=== PATIENT | female | born 1990 | race Caucasian/White ===

== ENCOUNTER 2016-04-27 17:20 | Inpatient (IN) | payer MEDICAID ==
[~2016-04-27] VITALS: Ht 152.4 cm; Wt 75.7 kg
[2016-04-27] MEDS ORDERED: PRENAT PO (17:36)
[2016-04-27 17:37] VITALS: Ht 152.4 cm; Wt 75.7 kg
[2016-04-27 17:38] VITALS: BP 123/76; PULSE 81; RESP 18
--- NOTE | 2016-04-27 17:57 | TRIAGE ---
OB Triage Datetime Report Generated by CPN: 04/27/2016 17:57 Datetime: 04/27/2016 17:41 Vaginal Exam Dilatation (cms): 4.0 Effacement (%): 80 Station: -2 Exam By: [email or web address] Datetime: 04/27/2016 17:34 Assessment Type: Triage Maternal Assessment Level of Consciousness: Fully Conscious DTR's/Clonus: DTRs 2+; No Clonus Headache: Denies Blurred Vision: No Respiratory Effort: Unlabored; Regular Rhythm; Equal Expansion Breath Sounds, Left: Clear and Equal Breath Sounds, Right: Clear and Equal Nausea/Vomiting: Denies RUQ Epigastric Pain: Denies Lower Extremities Edema: None Degree: None Upper Extremities Edema: None Degree: None Facial Edema: None Fall Risk Assessment History of Falling: (0) No Secondary Diagnosis: (0) No Ambulatory Aid: (0) Bedrest/Nurse Assist IV Therapy: (0) No Gait: (0) Normal/Bedrest/Immobile Mental Status: (0) Oriented to Own Ability Fall Score: 0 Fall Risk Score Definition: No Risk: No action required Datetime: 04/27/2016 17:32 Time of Arrival: 04/27/2016 17:16 EGA: 39.4 Arrived By: Wheelchair Arrived From: Home Chief Complaint: C/O UC'S Movement: Present Contractions: Regular Time Contractions Began: 04/26/2016 22:00 Rupture of Membranes: Denies Vaginal Bleeding: None Vaginal Discharge: Denies Recent Sexual Intercouse: Denies Abdominal Trauma: Not Applicable Patient Complaints: Contractions; Cramping; Back Pain Time Provider Notified: 04/27/2016 17:33 Provider Notified: LILLIAN Initial Plan: MARCK CASTILLO
[2016-04-27 18:49] LABS: BASOPHILS % 0.3 % (0.0-2.0); EOSINOPHILS # 0.1 10^3/ul (0.0-0.5); HEMATOCRIT 32.1 % (37.0-47.0); HEMOGLOBIN 10.7 g/dl (12.0-16.0); LYMPHOCYTES # 1.9 10^3/ul (0.8-2.9); LYMPHOCYTES % 21.7 % (15.0-51.0); MEAN CORPUSCULAR HEMOGLOBIN 28.3 pg (29.0-33.0); MEAN CORPUSCULAR HGB CONC 33.3 g/dl (32.0-37.0); MEAN CORPUSCULAR VOLUME 84.9 fl (82.0-101.0); MEAN PLATELET VOLUME 12.4 fl (7.4-10.4); MONOCYTE # 0.5 10^3/ul (0.3-0.9); MONOCYTES % 5.2 % (0.0-11.0); NEUTROPHIL # 6.2 10^3/ul (1.6-7.5); NEUTROPHILS % 71.8 % (39.0-77.0); PLATELET COUNT 187 10^3/UL (140-440); RED BLOOD COUNT 3.78 10^6/ul (4.20-5.40); RED CELL DISTRIBUTION WIDTH 14.4 % (11.5-14.5); UNCORRECTED WBC 8.7 10^3/ul (4.8-10.8); WHITE BLOOD COUNT 8.7 10^3/ul (4.8-10.8)
[2016-04-27] MEDS ORDERED: LIDOCAINE 1% (MPF) 30 ML INJ INJ PRN (19:00)
[2016-04-27] MEDS ORDERED: BUTORPHANOL 2 MG INJ IV PRN (19:00)
[2016-04-27] MEDS ORDERED: MISOPROSTOL 200 MCG TAB PR PRN (19:00)
[2016-04-27] MEDS ORDERED: OXYTOCIN 30 UNITS/LR 500 ML IV PRN ×2 (19:00)
[2016-04-27] MEDS ORDERED: CARBOPROST 250 MCG INJ IM PRN (19:00)
[2016-04-27] MEDS ORDERED: OXYTOCIN 30 UNITS/LR 500 ML IV SCH ×2 (19:00)
[2016-04-27] MEDS ORDERED: METHYLERGONOVINE 0.2 MG INJ IM PRN (19:00)
[2016-04-27] MEDS ORDERED: IBUPROFEN 600 MG TAB PO PRN (19:00)
[2016-04-27 19:09] LABS: CONDITION 1
[2016-04-27 19:10] LABS: INR 0.89; PT RATIO 0.9
[2016-04-27 19:11] LABS: PARTIAL THROMBOPLASTIN TIME 27.6 Sec (25.0-35.0)
[2016-04-27] MEDS: LACTATED RINGER'S 1,000 ML IV SCH (19:18)
[2016-04-27] MEDS: BUTORPHANOL 2 MG INJ IV PRN (20:32)
[2016-04-27] MEDS ORDERED: LACTATED RINGER'S 1,000 ML IV PRN (23:55)
[2016-04-28] MEDS: LACTATED RINGER'S 1,000 ML IV SCH ×2 (00:37→12:22)
[2016-04-28] MEDS: BUTORPHANOL 2 MG INJ IV PRN (00:50)
[2016-04-28 09:30] VITALS: BP 106/58; PULSE 80; RESP 18
[2016-04-28] MEDS ORDERED: OXYTOCIN 30 UNITS/LR 500 ML IV SCH ×2 (09:31→12:30)
[2016-04-28 09:45] VITALS: BP 110/59; PULSE 98; RESP 18
--- NOTE | 2016-04-28 09:47 | LDN ---
Date/Time of Note Date/Time of Note DATE: 04/28/16 TIME: 09:43 Delivery Summary Normal spontaneous vaginal delivery of a baby boy from OA position shoulder delivered without any difficulty followed with the rest of the baby's body; placenta spontaneous expulsion inspected complete patient sustained small perineal abrasion which repaired singular 3 [place] chromic catgut estimated blood loss 200 Placenta Delivered: Spontaneously Meconium: none Perineum intact?: Yes Anesthesia type: Epidural Sponge & Needle done & correct: Yes All needle counts correct: Yes Any foreign bodies felt in the: No Problems: Infant Delivery Information Sex Sex: male Apgars 1 Minute: 9 5 Minute: 9 Suctioning Nose & mouth suctioned at triston: Yes Delee suction performed: No Umbilical Cord Umbilical cord with: 3 Vessels Cord presentations: nuchal cord Cord Blood was obtained: Yes YAMILA ROD MD Apr 28, 2016 09:46
--- NOTE | 2016-04-28 09:53 | HP ---
Date/Time of Note Date/Time of Note DATE: 04/28/16 TIME: 09:47 OB - History Hx of Present Free Text/Dictation 25 years old female 39 weeks and 5 days admitted to [facility] in labor [id number] contractions with acceleration of heart tracing with some category 2 heart rate cervical dilatation 3-4 cm 100% effacement vertex at -1 station patient is being observed for possible normal delivery Estimated Due Date: Apr 30, 2016 : 2 Para: 1 Care: Limited Care Ultrasounds: Normal mid trimester US Obstetrical Complications: None Medical Complications: None Past Family/Social History * Past Medical, Surgical, Family and Obstetric Histories reviewed from chart. Rubella: immune RPR/VDRL: Negative GBS Status: Negative HBsAG: Negative OB Admission Exam Vital Signs Vital Signs Vital Signs Date Time Temp Pulse Resp B/P Pulse Ox O2 Delivery O2 Flow Rate FiO2 04/27/16 17:38 97.8 81 18 123/76 97 Room Air Last 72 hours Lab Results CBC & BMP 04/27/16 18:22 YAMILA ROD MD Apr 28, 2016 09:53
[2016-04-28 10:00] VITALS: BP 108/61; PULSE 95; RESP 18
[2016-04-28] MEDS ORDERED: LANOLIN 7 GM TUBE TOP PRN ×2 (10:00→12:30)
[2016-04-28] MEDS ORDERED: BENZOCAINE 20% 56 ML SPRAY TOP PRN ×2 (10:00→12:30)
[2016-04-28] MEDS ORDERED: DIBUCAINE 1% 30 GM OINT PR PRN ×2 (10:00→12:30)
[2016-04-28] MEDS ORDERED: ACETAMINOPHEN 325 MG TAB PO PRN ×2 (10:00→12:30)
[2016-04-28] MEDS ORDERED: OXYCODONE/ASPIRIN (4.88/325) TAB PO PRN ×4 (10:00→12:30)
[2016-04-28] MEDS ORDERED: ACETAMINOPHEN/CODEINE #3 TAB PO PRN ×4 (10:00→12:30)
[2016-04-28] MEDS ORDERED: ONDANSETRON 4 MG INJ IV PRN ×2 (10:00→12:30)
[2016-04-28 10:45] VITALS: BP 110/59; PULSE 97; RESP 16
[2016-04-28] MEDS: IBUPROFEN 600 MG TAB PO SCH ×2 (12:12→17:46)
[2016-04-28] MEDS: WITCH HAZEL/GLYCERIN PAD PR PRN (12:13)
[2016-04-28] MEDS ORDERED: LACTATED RINGER'S 1,000 ML IV PRN (12:22)
[2016-04-28] MEDS ORDERED: METHYLERGONOVINE 0.2 MG INJ IM PRN (12:30)
[2016-04-28] MEDS ORDERED: BUTORPHANOL 2 MG INJ IV PRN (12:30)
[2016-04-28] MEDS ORDERED: IBUPROFEN 600 MG TAB PO PRN (12:30)
[2016-04-28] MEDS ORDERED: WITCH HAZEL/GLYCERIN PAD PR PRN (12:30)
[2016-04-28] MEDS ORDERED: MISOPROSTOL 200 MCG TAB PR PRN (12:30)
[2016-04-28] MEDS ORDERED: LIDOCAINE 1% (MPF) 30 ML INJ INJ PRN (12:30)
[2016-04-28] MEDS ORDERED: CARBOPROST 250 MCG INJ IM PRN (12:30)
[2016-04-28] MEDS ORDERED: OXYCODONE/ACETAMINOPHEN (5/325) TAB PO PRN (12:30)
[2016-04-28] MEDS ORDERED: OXYTOCIN 30 UNITS/LR 500 ML IV PRN (12:30)
[2016-04-28 13:43] LABS: BASOPHILS % 0.2 % (0.0-2.0); HEMATOCRIT 31.1 % (37.0-47.0); HEMOGLOBIN 10.5 g/dl (12.0-16.0); LYMPHOCYTES # 1.3 10^3/ul (0.8-2.9); MEAN CORPUSCULAR HEMOGLOBIN 28.4 pg (29.0-33.0); MEAN CORPUSCULAR HGB CONC 33.9 g/dl (32.0-37.0); MEAN CORPUSCULAR VOLUME 83.8 fl (82.0-101.0); MONOCYTE # 0.6 10^3/ul (0.3-0.9); MONOCYTES % 3.5 % (0.0-11.0); NEUTROPHIL # 16.5 10^3/ul (1.6-7.5); NEUTROPHILS % 89.3 % (39.0-77.0); PLATELET COUNT 172 10^3/UL (140-440); RED BLOOD COUNT 3.71 10^6/ul (4.20-5.40); RED CELL DISTRIBUTION WIDTH 14.5 % (11.5-14.5); UNCORRECTED WBC 18.4 10^3/ul (4.8-10.8); WHITE BLOOD COUNT 18.4 10^3/ul (4.8-10.8)
[2016-04-28 14:01] LABS: CONDITION 1; LH ANALYZER COMMENTS 1
[2016-04-28 14:05] LABS: INR 0.93; PROTIME 12.5 Sec (12.2-14.2)
[2016-04-28 14:06] LABS: PARTIAL THROMBOPLASTIN TIME 27.6 Sec (25.0-35.0)
[2016-04-28 16:00] VITALS: BP 115/69; PULSE 89; RESP 16
[2016-04-28] MEDS ORDERED: IBUPROFEN 600 MG TAB PO SCH (18:00)
[2016-04-28 19:45] VITALS: BP 98/50; PULSE 82; RESP 18
[2016-04-28] MEDS ORDERED: SENNA/DOCUSATE NA (8.6MG/50MG) TAB PO SCH (21:00)
[2016-04-28] MEDS: SENNA/DOCUSATE NA (8.6MG/50MG) TAB PO SCH (21:12)
[2016-04-29] MEDS: IBUPROFEN 600 MG TAB PO SCH ×5 (00:19→23:43)
[2016-04-29 04:41] VITALS: BP 98/54; PULSE 89; RESP 18
[2016-04-29] MEDS: OXYTOCIN 30 UNITS/LR 500 ML IV SCH ×2 (05:33→05:34)
[2016-04-29] MEDS: LACTATED RINGER'S 1,000 ML IV SCH ×4 (05:34→05:35)
[2016-04-29] MEDS: DEXTROSE 5%-LR 1,000 ML IV SCH ×2 (05:34→05:35)
[2016-04-29 07:56] LABS: BASOPHILS % 0.3 % (0.0-2.0); EOSINOPHILS # 0.1 10^3/ul (0.0-0.5); HEMATOCRIT 27.3 % (37.0-47.0); HEMOGLOBIN 9.2 g/dl (12.0-16.0); LYMPHOCYTES # 2.5 10^3/ul (0.8-2.9); LYMPHOCYTES % 20.7 % (15.0-51.0); MEAN CORPUSCULAR HEMOGLOBIN 28.7 pg (29.0-33.0); MEAN CORPUSCULAR HGB CONC 33.8 g/dl (32.0-37.0); MEAN CORPUSCULAR VOLUME 84.9 fl (82.0-101.0); MEAN PLATELET VOLUME 12.1 fl (7.4-10.4); MONOCYTE # 0.7 10^3/ul (0.3-0.9); MONOCYTES % 5.3 % (0.0-11.0); NEUTROPHIL # 8.9 10^3/ul (1.6-7.5); NEUTROPHILS % 72.7 % (39.0-77.0); PLATELET COUNT 143 10^3/UL (140-440); RED BLOOD COUNT 3.22 10^6/ul (4.20-5.40); UNCORRECTED WBC 12.3 10^3/ul (4.8-10.8); WHITE BLOOD COUNT 12.3 10^3/ul (4.8-10.8)
[2016-04-29 08:08] LABS: CONDITION 1
[2016-04-29 08:20] VITALS: BP 98/58; PULSE 90; RESP 18
[2016-04-29] MEDS: SENNA/DOCUSATE NA (8.6MG/50MG) TAB PO SCH ×2 (09:08→20:34)
[2016-04-29 11:57] LABS: RUBELLA ANTIBODY - IGG 3.81
--- NOTE | 2016-04-29 14:40 | PN ---
Date/Time of Note Date/Time of Note DATE: 04/29/16 TIME: 14:39 OB Subjective Subjective Subjective Post normal vaginal delivery day 1 Vital sign a stable afebrile abdomen soft uterus firm lochia normal extremity normal Laboratory Tests Test 04/29/16 06:50 Basophils # 0.010^3/ul Basophils % 0.3% Blood Morphology Comment Eosinophils # 0.110^3/ul Eosinophils % 1.0% Hematocrit 27.3% Hemoglobin 9.2g/dl Lymphocytes # 2.510^3/ul Lymphocytes % 20.7% Mean Corpuscular Hemoglobin 28.7pg Mean Corpuscular Hemoglobin Concent 33.8g/dl Mean Corpuscular Volume 84.9fl Mean Platelet Volume 12.1fl Monocytes # 0.710^3/ul Monocytes % 5.3% Neutrophils # 8.910^3/ul Neutrophils % 72.7% Nucleated Red Blood Cells # 0.010^3/ul Nucleated Red Blood Cells % 0.0/100WBC Platelet Count 49127^3/UL Red Blood Count 3.2210^6/ul Red Cell Distribution Width 14.0% White Blood Count 12.310^3/ul Current Medications Medications (Trade) Dose Ordered Sig/Adan Route PRN Reason Start Time Stop Time Status Last Admin Dose Admin Lactated Ringer's 1,000 ml @ 125 mls/hr Q8H IV 04/27/16 18:35 04/28/16 12:30 DC 04/28/16 00:37 Oxytocin/Lactated Ringer's 500 ml @ 125 mls/hr ONCE -MAY REPEAT X1 IV 04/27/16 19:00 04/28/16 12:30 DC 04/28/16 09:19 Oxytocin/Lactated Ringer's 500 ml @ 125 mls/hr ONCE IV 04/27/16 19:00 04/28/16 12:30 DC 04/28/16 09:19 Oxytocin/Lactated Ringer's 500 ml @ 0 mls/hr TITRATE PRN IV LABOR DECREASES 04/27/16 19:00 04/28/16 12:30 DC Butorphanol Tartrate (Stadol) 1 mg Q2H PRN IV PAIN 04/27/16 19:00 04/28/16 12:30 DC Butorphanol Tartrate (Stadol) 2 mg Q2H PRN IV PAIN 04/27/16 19:00 1/13/17 12:30 DC 04/28/16 00:50 Lidocaine (Xylocaine 1% (Mpf)) 30 ml ONCE PRN INJ EPISIOTOMY/TEARING 04/27/16 19:00 04/28/16 12:30 DC Ibuprofen 600 mg 600 mg ONCE PRN PO Mild Pain (Pain Score 1-3) 04/27/16 19:00 04/28/16 12:30 DC Lactated Ringer's 1,000 ml @ 2,000 mls/hr Q30M PRN IV PRE-EPIDURAL BOLUS 04/27/16 23:55 04/28/16 12:30 DC Oxytocin/Lactated Ringer's 500 ml @ 0 mls/hr ONCE PRN IV For Hemorrhage Management 04/27/16 19:00 04/28/16 12:30 DC Methylergonovine Maleate (Methergine) 0.2 mg ONCE PRN IM VAGINAL BLEEDING 04/27/16 19:00 04/28/16 12:30 DC Carboprost Tromethamine (Hemabate) 250 mcg ONCE PRN IM VAGINAL BLEEDING 04/27/16 19:00 04/28/16 12:30 DC Misoprostol 1000 mcg 1,000 mcg ONCE PRN MI VAGINAL BLEEDING 04/27/16 19:00 04/28/16 12:30 DC Oxytocin/Lactated Ringer's 500 ml @ 125 mls/hr Q4H IV 04/28/16 09:31 04/28/16 12:30 DC Ibuprofen (Motrin) 600 mg Q6 PO 04/28/16 12:00 04/29/16 12:32 Acetaminophen (Tylenol Tab) 650 mg Q4H PRN PO PAIN LEVEL 1-5 04/28/16 10:00 04/28/16 12:30 DC Acetaminophen/ Codeine Phosphate (Tylenol No.3) 1 tab Q4H PRN PO PAIN LEVEL 1-5 04/28/16 10:00 04/28/16 12:30 DC Acetaminophen/ Codeine Phosphate (Tylenol No.3) 2 tab Q4H PRN PO PAIN LEVEL 6-10 04/28/16 10:00 04/28/16 12:30 DC Oxycodone/Aspirin (Percodan) 1 tab Q3H PRN PO PAIN LEVEL 1-5 04/28/16 10:00 04/28/16 12:37 DC Oxycodone/Aspirin (Percodan) 2 tab Q3H PRN PO PAIN LEVEL 6-10 04/28/16 10:00 04/28/16 12:37 DC Ondansetron HCl (Zofran Inj) 4 mg Q6H PRN IV NAUSEA AND/OR VOMITING 04/28/16 10:00 Senna/Docusate Sodium (Senokot-S) 1 tab BID PO 04/28/16 21:00 04/29/16 09:08 Witch Dolores/ Glycerin (Tucks Pads) 1 pad BEDSIDE MEDICATION PRN MI HEMORRHOID/EPISIOTMY PAIN 04/28/16 10:00 04/28/16 12:13 Benzocaine (Dermoplast [place]) 1 spray BEDSIDE MEDICATION PRN TOP HEMORRHOID/EPISIOTMY PAIN 04/28/16 10:00 04/28/16 12:30 DC 04/28/16 12:11 Dibucaine (Nupercainal) 1 applic BEDSIDE MEDICATION PRN MI HEMORRHOID/EPISIOTMY PAIN 04/28/16 10:00 Lanolin (Uxy-[id number]-[id number]) 1 applic BEDSIDE MEDICATION PRN TOP BEDSIDE FOR RAJ TO NIPPLES 04/28/16 10:00 04/28/16 12:22 Measles/Mumps/ Rubella Vaccine Live 0.5 ml 0.5 ml ONCE ONCE SC* 04/30/16 09:00 04/30/16 09:01 Lactated Ringer's (Lr) 1,000 ml @ 125 mls/hr Q8H IV 04/28/16 12:22 04/28/16 12:22 Butorphanol Tartrate (Stadol) 2 mg Q2H PRN IV PAIN 04/28/16 12:30 Lidocaine 30 ml 30 ml ONCE PRN INJ EPISIOTOMY/TEARING 04/28/16 12:30 Oxytocin/Lactated Ringer's 500 ml @ 125 mls/hr ONCE -MAY REPEAT X1 IV 04/28/16 12:30 Ibuprofen (Motrin) 600 mg ONCE PRN PO Mild Pain (Pain Score 1-3) 04/28/16 12:30 Oxycodone/ Acetaminophen 2 tab 2 tab ONCE PRN PO Moderate to Severe Pain (4-10) 04/28/16 12:30 Lactated Ringer's 1,000 ml @ 2,000 mls/hr Q30M PRN IV PRE-EPIDURAL BOLUS 04/28/16 12:22 Oxytocin/Lactated Ringer's 500 ml @ 0 mls/hr ONCE PRN IV For Hemorrhage Management 04/28/16 12:30 Methylergonovine Maleate (Methergine) 0.2 mg ONCE PRN IM VAGINAL BLEEDING 04/28/16 12:30 Carboprost Tromethamine (Hemabate) 250 mcg ONCE PRN IM VAGINAL BLEEDING 04/28/16 12:30 Misoprostol 1000 mcg 1,000 mcg ONCE PRN MI VAGINAL BLEEDING 04/28/16 12:30 Dextrose/Lactated Ringer's 1,000 ml @ 125 mls/hr Q8H IV 04/28/16 12:22 Lactated Ringer's 1,000 ml @ 125 mls/hr Q8H IV 04/28/16 12:22 Oxytocin/Lactated Ringer's 500 ml @ 125 mls/hr Q4H IV 04/28/16 12:22 04/28/16 20:21 DC Ibuprofen (Motrin) 600 mg Q6 PO 04/28/16 18:00 04/28/16 18:00 DC Acetaminophen (Tylenol Tab) 650 mg Q4H PRN PO PAIN LEVEL 1-5 04/28/16 12:30 Acetaminophen/ Codeine Phosphate (Tylenol No.3) 1 tab Q4H PRN PO PAIN LEVEL 1-5 04/28/16 12:30 Acetaminophen/ Codeine Phosphate (Tylenol No.3) 2 tab Q4H PRN PO PAIN LEVEL 6-10 04/28/16 12:30 Oxycodone/Aspirin (Percodan) 1 tab Q3H PRN PO PAIN LEVEL 1-5 04/28/16 12:30 Oxycodone/Aspirin (Percodan) 2 tab Q3H PRN PO PAIN LEVEL 6-10 04/28/16 12:30 04/28/16 15:10 Ondansetron HCl (Zofran Inj) 4 mg Q6H PRN IV NAUSEA AND/OR VOMITING 04/28/16 12:30 04/28/16 12:37 DC Senna/Docusate Sodium (Senokot-S) 1 tab BID PO 04/28/16 21:00 04/28/16 21:00 DC Witch Dolores/ Glycerin (Tucks Pads) 1 pad BEDSIDE MEDICATION PRN MI HEMORRHOID/EPISIOTMY PAIN 04/28/16 12:30 04/28/16 12:37 DC Benzocaine (Dermoplast [place]) 1 spray BEDSIDE MEDICATION PRN TOP HEMORRHOID/EPISIOTMY PAIN 04/28/16 12:30 Dibucaine (Nupercainal) 1 applic BEDSIDE MEDICATION PRN MI HEMORRHOID/EPISIOTMY PAIN 04/28/16 12:30 04/28/16 12:37 DC Lanolin (Xiq-C-Xojxez) 1 applic BEDSIDE MEDICATION PRN TOP BEDSIDE FOR RAJ TO NIPPLES 04/28/16 12:30 04/28/16 12:37 DC Measles/Mumps/ Rubella Vaccine Live (Mmr Ii Vaccine) 0.5 ml ONCE ONCE SC* 04/30/16 09:00 04/30/16 09:00 YAMILA NIX MD Apr 29, 2016 14:40
[2016-04-29 17:00] VITALS: BP 109/57; PULSE 101; RESP 20
[2016-04-29 19:45] VITALS: BP 110/58; PULSE 97; RESP 18
[2016-04-30 04:00] VITALS: BP 103/51; PULSE 83; RESP 18
[2016-04-30] MEDS: IBUPROFEN 600 MG TAB PO SCH ×2 (05:53→12:33)
[2016-04-30 08:39] VITALS: BP 120/71; PULSE 93; RESP 18
[2016-04-30] MEDS ORDERED: MEASLES,MUMPS,RUBELLA VACCINE INJ SC* ONE ×2 (09:00)
[2016-04-30] MEDS: SENNA/DOCUSATE NA (8.6MG/50MG) TAB PO SCH (09:00)
[2016-04-30] MEDS: WITCH HAZEL/GLYCERIN PAD PR PRN (10:27)
--- NOTE | 2016-04-30 12:04 | PD.PPDC ---
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
--- NOTE | 2016-04-30 12:06 | DS ---
Date/Time of Note Date/Time of Note DATE: 04/30/16 TIME: 12:05 Obstetrical Discharge Record Final Diagnosis Final Diagnosis: Term delivered Vaginal Delivery Obstetrical Delivery: Spontaneous Condition on Discharge Physical Assessment Last Vitals: Vital sign stable abdomen soft uterus firm lochia normal extremity normal post discharge home instructions given to make appointment for follow-up in 2 weeks Voiding: Yes Bowel Movement: Yes Breast: Soft, non-tender, Filling Fundus: Firm Calf Tenderness: No Patient Condition: Good YAMILA ROD MD Apr 30, 2016 12:06
[2016-04-30 15:55] VITALS: BP 119/70; PULSE 84; RESP 12
== END 2016-04-30 18:00 | disposition home or self-care (01) | DRG 775 ==
LOC: OBT 17:20 → L-D 17:21 → OBT 17:50 → L-D 17:50 → PP1 04-28 11:20
PROVIDERS: ADMIT Obstetrics & Gynecology; ATTEND Obstetrics & Gynecology
PROC: 10E0XZZ Delivery of Products of Conception, External Approach (ICD-10-PCS; principal; 2016-04-28)
DX: O69.81X0 Labor and delivery complicated by cord around neck, without compression, not applicable or unspecified (principal); O76 Abnormality in fetal heart rate and rhythm complicating labor and delivery; Z3A.39 39 weeks gestation of pregnancy; Z37.0 Single live birth
CPT/HCPCS: 85025; 85610; 85730; 86592; 86762; 86850; 86885; 86900; 86901; 87340; 99464; G0463; J2590; J2790; J7120; J7121